=== PATIENT | female | born 1990 | race Caucasian/White ===

== ENCOUNTER 2020-04-09 07:43 | Emergency (ER) | payer OTHER ==
[~2020-04-09] VITALS: Ht 167.6 cm; Wt 107.5 kg
--- OUTSIDE RECORDS SUMMARY | 2020-04-09 07:46 | XMS ---
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 Hank has no Care Guidelines for this patient. Maryam VISIT COUNT (12 MO.) 1 ELLIOT Perez TOTAL 1 NOTE: Visits indicate total known visits. ED/UCC VISIT TRACKING (12 MO.) 04/09/2020 07:43 [facility] [place] TYPE: Emergency COMPLAINT: - RECTAL PAIN INPATIENT VISIT TRACKING (12 MO.) No inpatient visits to display in this time frame [id number]
[2020-04-09] MEDS ORDERED: SUBOXONE 4 MG-1 EACH SL (07:54)
[2020-04-09] MEDS ORDERED: HYDROXYZINE PAM50 MG PO (07:55)
[2020-04-09] MEDS ORDERED: DULCOLAX5 MG PO (07:55)
[2020-04-09] MEDS ORDERED: ANUSOL-HC30 GM PR (08:26)
== END 2020-04-09 08:30 | disposition home or self-care (01) ==
LOC: ED 07:43
DX: K64.4 Residual hemorrhoidal skin tags (principal); Z79.899 Other long term (current) drug therapy
CPT/HCPCS: 99283

== ENCOUNTER 2020-08-04 08:24 | Emergency (ER) | payer OTHER ==
[~2020-08-04] VITALS: Ht 167.6 cm; Wt 100.7 kg
[~2020-08-04 08:24] MED LIST: ANUSOL-HC30 GM PR; DULCOLAX5 MG PO; HYDROXYZINE PAM50 MG PO; SUBOXONE 4 MG-1 EACH SL
--- OUTSIDE RECORDS SUMMARY | 2020-08-04 09:34 | XMS ---
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 Maryam VISIT COUNT (12 MO.) 2 ELLIOT Perez TOTAL 2 NOTE: Visits indicate total known visits. ED/UCC VISIT TRACKING (12 MO.) 08/04/2020 08:24 [facility] [place] TYPE: Emergency COMPLAINT: - LEFT ANKLE INJURY 04/09/2020 07:43 [facility] [place] TYPE: Emergency COMPLAINT: - RECTAL PAIN DIAGNOSES: - Other specified diseases of anus and rectum - Other care home (current) drug therapy - Residual hemorrhoidal skin tags INPATIENT VISIT TRACKING (12 MO.) No inpatient visits to display in this time frame [email or web address]
[2020-08-04] MEDS ORDERED: OMEPRAZOLE20 MG PO (09:58)
[2020-08-04] MEDS ORDERED: FLUOXETINE HCL40 MG PO (09:58)
[2020-08-04] MEDS ORDERED: CRUTCH1 EACH MISC (10:30)
== END 2020-08-04 11:14 | disposition home or self-care (01) ==
LOC: ED 08:24
DX: S82.52XA Displaced fracture of medial malleolus of left tibia, initial encounter for closed fracture (principal); S82.832A Other fracture of upper and lower end of left fibula, initial encounter for closed fracture; X50.9XXA Other and unspecified overexertion or strenuous movements or postures, initial encounter; Z79.899 Other long term (current) drug therapy
CPT/HCPCS: 73610; 96374; 96375; 96376; 99283-25; J1170; J1885

== ENCOUNTER 2020-08-10 06:10 | Day surgery (SDC) | payer OTHER ==
[~2020-08-10] VITALS: Ht 167.6 cm; Wt 100.0 kg
[~2020-08-10 06:10] MED LIST changes: +CRUTCH1 EACH MISC; +FLUOXETINE HCL40 MG PO; +OMEPRAZOLE20 MG PO
--- NOTE | 2020-08-10 06:27 | NUR ---
[facility] RAPID COVID TEST DONE PER ORDER. COVID TEST COLLECTED FROM BOTH NARES W/O ISSUE. PT TOLERATED WELL.
[2020-08-10] MEDS ORDERED: CLONIDINE HCL0.1 MG PO (11:02)
[2020-08-10] MEDS ORDERED: GABAPENTIN300 MG PO (11:02)
--- NOTE | 2020-08-10 12:41 | NUR ---
08/10/20 1241 Ellen Maya 1228- PT TO PACU IN SF POSITION. EYES CLOSED. RESPONDS TO VERBAL AND TACTILE STIMULI. BREATHING EASY AND UNALBORED. PT DENIES PAIN BUT REPORTS NAUSEA. SPO2 >95% ON 6 L O2 VIA SIMPLE MASK. BUSINESS PROFESSOR NOTIFIED OF NAUSEA. 1335- PT RESPONDS TO VOICE. BREATHING EASY AND UNLABORED. SPO2 >95% ON 6 L O2 VIA SIMPLE MASK. VSS. CAP REFIL BRISK TO RLE, PULSES STRONG. VSS.
[2020-08-10] MEDS ORDERED: KETOROLAC TROME10 MG PO (12:42)
[2020-08-10] MEDS ORDERED: TRAMADOL HCL50 MG PO (12:43)
--- NOTE | 2020-08-10 13:10 | NUR ---
ICED WATER GIVEN. CALL LIGHT IS WITHIN REACH. PATIENT'S FRIEND IS BRINGING CRUTCHES. PATIENT STANDS AND PIVOT TRANSFERS TO THE BEDSIDE COMMODE. SHE DOES WELL WITH THAT. SHE VOIDS 200 ML CLEAR, YELLOW URINE AND IS BACK IN BED. SCD ON NON-OPERATIVE LEG. SANDWICH ORDERED FROM DIETARY.
--- NOTE | 2020-08-10 13:30 | NUR ---
SANDWICH ARRIVES. PATIENT IS SITTING UP IN BED, EATING AND SHE IS TOLERATING THAT WELL.
--- NOTE | 2020-08-10 13:48 | NUR ---
PATIENT PUSHES HER CALL LIGHT AND REQUESTS "SOMETHING STRONGER" FOR PAIN. DR HOGAN IS NOTIFIED AND HE REPORTS HE WILL SEND AN RX TO [facility].
[2020-08-10] MEDS ORDERED: HYDROCODON-ACE1 EA11 PO (13:56)
--- NOTE | 2020-08-10 14:14 | NUR ---
DISCHARGE INSTRUCTIONS GIVEN. PATIENT IS ASSISTED DRESSED AFTER TRANSFERRING TO THE COMMODE. SHE DOES WELL WITH THAT. PATIENT IS EXPRESSING FRUSTRATION WITH "PAIN CONTROL" AND EDUCATION IS COMPLETE WITH REGARD TO THAT. PATIENT VERBALIZES UNDERSTANDING.
--- NOTE | 2020-08-10 14:58 | NUR ---
LE 1430: PATIENT TRANSFERS HERSELF TO THE WHEELCHAIR AND THEN TO PERSONAL VEHICLE AND SHE IS DISCHARGED HOME.
--- NOTE | 2020-08-12 09:54 | OR ---
[facility] [address], [place] [address] Signed DATE OF OPERATION: 08/10/2020 SURGEON: Israel Bolanos MD PREOPERATIVE DIAGNOSIS: Left bimalleolar fracture dislocation of the ankle. POSTOPERATIVE DIAGNOSIS: Left bimalleolar fracture dislocation of the ankle. PROCEDURE PERFORMED: Open reduction and internal fixation of left bimalleolar ankle fracture with syndesmosis fixation. RETAIL COMMISSION SALES ASSOCIATE: None. ANESTHESIA: General. BLOOD LOSS: Minimal. TOURNIQUET TIME: 67 minutes. IMPLANTS: A 10-hole 1/3rd tubular plate with 11 screws laterally, screw and wire medially. BRIEF HISTORY: Rachel is a 29-year-old female suffered a ground level fall fracturing and dislocating her ankle. She had a segmental fracture in the proximal aspect of the distal fibula about 6 cm above the joint. She was reduced in the Emergency Department, placed in a boot. We allowed the swelling to go down and scheduled her for surgery. Risks and benefits of surgery were discussed with her as well as alternatives. She elected to proceed. DESCRIPTION OF PROCEDURE: Once consent was obtained, she was taken to the operating room. After adequate anesthesia, she was placed on the operating room table. All downside pressure points Electronically Signed By: ISRAEL BOLANOS MD 08/12/20 0954 PATIENT NAME: RACHEL EMERY OPERATIVE REPORT DATE OF : [birth year] REPORT #: [id number] PHYSICIAN: ISRAEL BOLANOS MD PCP: KHURRAM PIKE PA-C REPORT IS CONFIDENTIAL AND NOT TO BE RELEASED WITHOUT AUTHORIZATION [facility] [address], [place] [address] Signed were well padded. The left hip was placed on a bump and a well-padded proximal thigh tourniquet was placed. The leg was then prepped and draped in a standard sterile fashion. The segmental fibular fracture was then isolated using the image intensifier and a 3-inch incision was made in length inches, taken through skin and subcutaneous tissue, the fascia was divided longitudinally and blunt dissection was taken down to the fibula to avoid any damage to the superficial peroneal nerve. The fracture was then dissected free of overlying soft tissue. The 3 cm segment in the middle was also split sagittally. This was reduced, clamped and held with a 2.7 screw in anterior-posterior manner. The three fragments were then all reduced and held using the long plate. We placed one screw distal, one screw proximal and checked using image intensifier. The fracture and alignment were all good. The remaining screws were placed, several 2.7 screws were placed from the plate into the middle fragment. Excellent fixation was obtained throughout. The wound was copiously irrigated with antibiotic solution, closed with 2-0 Monocryl for the deep fascia. I then turned our attention to the medial side where a 1.5 inch incision was centered over the medial malleolus, carried through skin and subcutaneous tissue. The fracture was identified and under direct visualization was reduced and held with a clamp. We then pinned it with a 1.6 K-wire. This was checked using image intensifier and found to be satisfactory. We drilled a 2nd hole just posterior to the K-wire and placed a 40 mm screw, which held the fragment quite nicely. We then cut and bent the wire . Once this was completed, both wounds were copiously irrigated with antibiotic solution once again. At the distal end of the lateral incision, we then drilled straight across the fibula and the tibia with the drill for the Arthrex syndesmosis fixation. The drill was taken all across again under direct image intensifier guidance. The device was then placed through the hole and deployed on the medial side and flipped until medial tibia. We then tightened it up with an ankle in neutral dorsiflexion. We got excellent fixation with this and the suture ends were cut. We then irrigated both wounds, closed with 2-0 Monocryl and maria del carmen. Both wounds were then dressed with Acticoat dressing, sterile cast padding and a posterior splint with stirrups. She was awakened, taken to the recovery room in satisfactory condition. All sponge, needle, and instrument counts were correct. Israel Bolanos MD BA/MODL /[id number] Electronically Signed By: ISRAEL BOLANOS MD 08/12/20 0954 PATIENT NAME: RACHEL EMERY OPERATIVE REPORT DATE OF : [birth year] REPORT #: [id number] PHYSICIAN: ISRAEL BOLANOS MD PCP: KHURRAM PIKE PA-C REPORT IS CONFIDENTIAL AND NOT TO BE RELEASED WITHOUT AUTHORIZATION [address] [address] Signed Copies: ~ Electronically Signed By: ISRAEL BOLANOS MD 08/12/20 0954 PATIENT NAME: RACHEL EMERY OPERATIVE REPORT DATE OF : [birth year] REPORT #: [id number] PHYSICIAN: ISRAEL BOLANOS MD PCP: KHURRAM PIKE PA-C REPORT IS CONFIDENTIAL AND NOT TO BE RELEASED WITHOUT AUTHORIZATION
== END 2020-08-10 14:30 | disposition home or self-care (01) ==
LOC: DS 06:10
PROVIDERS: ATTEND Specialist
PROC: 0QSK04Z Reposition Left Fibula with Internal Fixation Device, Open Approach (ICD-10-PCS; principal; 2020-08-10 12:00)
DX: S82.842A Displaced bimalleolar fracture of left lower leg, initial encounter for closed fracture (principal); S82.452A Displaced comminuted fracture of shaft of left fibula, initial encounter for closed fracture; G89.18 Other acute postprocedural pain; F19.21 Other psychoactive substance dependence, in remission; Z20.822 Contact with and (suspected) exposure to COVID-19; W01.0XXA Fall on same level from slipping, tripping and stumbling without subsequent striking against object, initial encounter; X50.1XXA Overexertion from prolonged static or awkward postures, initial encounter; Y92.830 Public park as the place of occurrence of the external cause
CPT/HCPCS: 01480; 64445; 64447; 73600; 76942; 80053; 84703; 85025; C1713; C9803; J0131; J0690; J1100; J1885; J2001; J2250; J2405; J2550; J2704; J2795; J7121; U0003

== ENCOUNTER 2022-04-08 16:47 | Emergency (ER) | payer OTHER ==
[~2022-04-08] VITALS: Ht 167.6 cm; Wt 74.8 kg
[~2022-04-08 16:47] MED LIST changes: +CLONIDINE HCL0.1 MG PO; +GABAPENTIN300 MG PO; +HYDROCODON-ACE1 EA11 PO; +KETOROLAC TROME10 MG PO; +TRAMADOL HCL50 MG PO
== END 2022-04-08 17:15 | disposition home or self-care (01) ==
LOC: ED 16:47
DX: S61.304A Unspecified open wound of right ring finger with damage to nail, initial encounter (principal); X58.XXXA Exposure to other specified factors, initial encounter; F17.200 Nicotine dependence, unspecified, uncomplicated; Z79.899 Other long term (current) drug therapy
CPT/HCPCS: 99282

== ENCOUNTER 2022-05-16 18:01 | Emergency (ER) | payer OTHER ==
[~2022-05-16] VITALS: Ht 167.6 cm; Wt 67.6 kg
--- OUTSIDE RECORDS SUMMARY | 2022-05-16 18:09 | XMS ---
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 - Patient with suicidal and/or homicidal ideations eloped. - Patient eloped with IV in place. Details: PATIENT LWBS CRITERIA MET - [facility] - 2 Visits in 30 Days CARE PROVIDERS [facility] Current PHONE: Unknown ESAU MINAYA Nurse Practitioner: 04/11/2020-Current PHONE: [phone] Claritza Rodriguez Nurse Practitioner: Current PHONE: [phone] Hank has no Care Guidelines for this patient. Maryam VISIT COUNT (12 MO.) 3 ELLIOT Perez TOTAL 3 NOTE: Visits indicate total known visits. 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
[2022-05-16] MEDS ORDERED: ONDANSETRON ODT8 MG PO (20:23)
== END 2022-05-16 20:43 | disposition home or self-care (01) ==
LOC: ED 18:01
DX: K52.9 Noninfective gastroenteritis and colitis, unspecified (principal); F17.200 Nicotine dependence, unspecified, uncomplicated; Z79.899 Other long term (current) drug therapy
CPT/HCPCS: 36415; 74177; 80053; 81001; 83690; 84703; 85025; A9270; J2270; J2405; J7030; Q9967

== ENCOUNTER 2023-03-21 15:50 | Emergency (ER) | payer OTHER ==
[~2023-03-21] VITALS: Ht 167.6 cm; Wt 56.7 kg
--- OUTSIDE RECORDS SUMMARY | ~2023-03-21 | XMS | Continuity of Care Document ---
Demographics + + + | Address | [address] | | | [place] [address] | + + + | Preferred Language | Unknown | + + + | Marital Status | Never | + + + | Mu-Ism Affiliation | Unknown | + + + | Race | White | + + + | Ethnic Group | Not or | + + + Author + + + | Author | [facility] | + + + | Organization | [facility] | + + + | Address | [address] | | | [place] [address] | + + + | Phone | | + + + Care Team Providers + + + + | Care Shelter Director Name | Role | Phone | + + + + Unavailable | Unavailable | + + + + Unavailable | Unavailable | + + + + Unavailable | Unavailable | + + + + Allergies and Intolerances + + + + + + | date | description | facility | reaction | severity | + + + + + + | (no date) | No Known | [facility] | (no reaction) | (no severity) | | | Allergies | | | | + + + + + + Encounters No information. Functional Status No information. Immunizations No information. Medications + + + + | date | description | facility | + + + + | 2022-04-08 00:00 | BUPRENORPHINE HCL/NALOXONE | [facility] | | | HCL | | + + + + | 2022-05-14 00:00 | BUPRENORPHINE HCL/NALOXONE | [facility] | | | HCL | | + + + + | 2022-05-16 00:00 | BUPRENORPHINE HCL/NALOXONE | [facility] | | | HCL | | + + + + | 2020-04-09 00:00 | HYDROCORTISONE | [facility] | + + + + | 2020-04-09 00:00 | HYDROCORTISONE | [facility] | + + + + | 2022-04-08 00:00 | OMEPRAZOLE | [facility] | + + + + | 2022-05-14 00:00 | OMEPRAZOLE | [facility] | + + + + | 2022-05-16 00:00 | OMEPRAZOLE | [facility] | + + + + | 2022-04-08 00:00 | BISACODYL | [facility] | + + + + | 2022-05-14 00:00 | BISACODYL | [facility] | + + + + | 2022-05-16 00:00 | BISACODYL | [facility] | + + + + | 2022-04-08 00:00 | GABAPENTIN | [facility] | + + + + | 2022-05-14 00:00 | GABAPENTIN | [facility] | + + + + | 2022-05-16 00:00 | GABAPENTIN | [facility] | + + + + | 2022-05-16 00:00 | ONDANSETRON | [facility] | + + + + | 2022-04-08 00:00 | FLUOXETINE HCL | [facility] | + + + + | 2022-05-14 00:00 | FLUOXETINE HCL | [facility] | + + + + | 2022-05-16 00:00 | FLUOXETINE HCL | [facility] | + + + + | 2020-08-10 00:00 | KETOROLAC TROMETHAMINE | [facility] | + + + + | 2020-08-10 00:00 | KETOROLAC TROMETHAMINE | [facility] | + + + + | 2022-04-08 00:00 | CLONIDINE HCL | [facility] | + + + + | 2022-05-14 00:00 | CLONIDINE HCL | [facility] | + + + + | 2022-05-16 00:00 | CLONIDINE HCL | [facility] | + + + + | 2022-04-08 00:00 | HYDROXYZINE PAMOATE | [facility] | + + + + | 2022-05-14 00:00 | HYDROXYZINE PAMOATE | [facility] | + + + + | 2022-05-16 00:00 | HYDROXYZINE PAMOATE | [facility] | + + + + Problems + + + + | date | description | facility | + + + + | 2020-04-09 00:00 | External hemorrhoids | [facility] | + + + + | 2020-04-09 00:00 | External hemorrhoids | [facility] | + + + + | 2022-05-14 00:00 | Patient left without being | [facility] | | | seen | | + + + + | 2022-05-16 00:00 | Gastroenteritis | [facility] | + + + + | 2023-01-10 08:20 | EPIGASTRIC PAIN | [facility] | + + + + | 2023-01-21 08:00 | EPIGASTRIC PAIN | [facility] | + + + + | 2023-02-04 09:00 | EPIGASTRIC PAIN | [facility] | + + + + Procedures No information. Results/Labs +--------+--------+ +---------+--------+---------+ | test | date | facility | value | unit | notes | +--------+--------+ +---------+--------+---------+ + + | Result panel 1 | + + + + + +--------+ + + | | 2022-05-16 | [facility] | 11.1 | (missing) | (missing) | | (unavailable | 18:26 [facility] | | | | + + + +--------+ + + + + | Result panel 2 | + + + + + +--------+ + + | | 2022-05-16 | [facility] | 67.6 | (missing) | (missing) | | (unavailable | 18:26 | [facility] | | | | + + + +--------+ + + + + | Result panel 3 | + + + + + +--------+ + + | | 2022-05-16 | [facility] | 23.6 | (missing) | (missing) | | (unavailable | 18:26 | [facility] | | | | + + + +--------+ + + + + | Result panel 4 | + + + + + +-------+ + + | | 2022-05-16 | [facility] | 6.8 | (missing) | (missing) | | (unavailable | 18:26 | [facility] | | | | + + + +-------+ + + + + | Result panel 5 | + + + + + +-------+ + + | | 2022-05-16 | [facility] | 1.4 | (missing) | (missing) | | (unavailable | 18:26 | [facility] | | | | + + + +-------+ + + + + | Result panel 6 | + + + + + +-------+ + + | | 2022-05-16 | [facility] | 0.6 | (missing) | (missing) | | (unavailable | 18:26 [facility] | | | | + + + +-------+ + + + + | Result panel 7 | + + + + + +--------+ + + | | 2022-05-16 | [facility] | 5.14 | (missing) | (missing) | | (unavailable | 18:26 [facility] | | | | + + + +--------+ + + + + | Result panel 8 | + + + + + +------+---------+ + | | 2022-05-16 | [facility] | 85 | mg/dL | (missing) | | (unavailable | 18:26 | [facility] | | | | + + + +------+---------+ + + + | Result panel 9 | + + + + + +------+---------+ + | | 2022-05-16 | [facility] | 15 | mg/dL | (missing) | | (unavailable | 18:26 | [facility] | | | | + + + +------+---------+ + + + | Result panel 10 | + + + + + +--------+---------+ + | | 2022-05-16 | [facility] | 0.97 | mg/dL | (missing) | | (unavailable | 18:26 | [facility] | | | | + + + +--------+---------+ + + + | Result panel 11 | + + + + + +--------+ + + | | 2022-05-16 | [facility] | 15.0 | (missing) | (missing) | | (unavailable | 18:26 [facility] | | | | + + + +--------+ + + + + | Result panel 12 | + + + + + +------+ + + | | 2022-05-16 | [facility] | 80 | (missing) | (missing) | | (unavailable | 18:26 [facility] | | | | + + + +------+ + + + + | Result panel 13 | + + + + + +---------+ + + | | 2022-05-16 | [facility] | 15.46 | (missing) | (missing) | | (unavailable | 18:26 [facility] | | | | + + + +---------+ + + + + | Result panel 14 | + + + + + +-------+ + + | | 2022-05-16 | [facility] | 137 | (missing) | (missing) | | (unavailable | 18:26 | [facility] | | | | + + + +-------+ + + + + | Result panel 15 | + + + + + +-------+ + + | | 2022-05-16 | [facility] | 3.9 | (missing) | (missing) | | (unavailable | 18:26 | [facility] | | | | + + + +-------+ + + + + | Result panel 16 | + + + + + +-------+ + + | | 2022-05-16 | [facility] | 101 | (missing) | (missing) | | (unavailable | 18:26 [facility] | | | | + + + +-------+ + + + + | Result panel 17 | + + + + + +------+ + + | | 2022-05-16 | [facility] | 28 | (missing) | (missing) | | (unavailable | 18:26 [facility] | | | | + + + +------+ + + + + | Result panel 18 | + + + + + +--------+ + + | | 2022-05-16 | [facility] | 11.9 | (missing) | (missing) | | (unavailable | 18:26 [facility] | | | | + + + +--------+ + + + + | Result panel 19 | + + + + + +-------+---------+ + | | 2022-05-16 | [facility] | 9.3 | mg/dL | (missing) | | (unavailable | 18:26 [facility] | | | | + + + +-------+---------+ + + + | Result panel 20 | + + + + + +-------+ + + | | 2022-05-16 | [facility] | 6.9 | (missing) | (missing) | | (unavailable | 18:26 [facility] | | | | + + + +-------+ + + + + | Result panel 21 | + + + + + +-------+ + + | | 2022-05-16 | [facility] | 3.8 | (missing) | (missing) | | (unavailable | 18:26 [facility] | | | | + + + +-------+ + + + + | Result panel 22 | + + + + + +--------+ + + | | 2022-05-16 | [facility] | 44.9 | (missing) | (missing) | | (unavailable | 18:26 [facility] | | | | + + + +--------+ + + + + | Result panel 23 | + + + + + +-------+ + + | | 2022-05-16 | [facility] | 3.1 | (missing) | (missing) | | (unavailable | 18:26 [facility] | | | | + + + +-------+ + + + + | Result panel 24 | + + + + + +--------+ + + | | 2022-05-16 | [facility] | 1.23 | (missing) | (missing) | | (unavailable | 18:26 [facility] | | | | + + + +--------+ + + + + | Result panel 25 | + + + + + +-------+ + + | | 2022-05-16 | [facility] | 0.8 | (missing) | (missing) | | (unavailable | 18:26 [facility] | | | | + + + +-------+ + + + + | Result panel 26 | + + + + + +------+ + + | | 2022-05-16 | [facility] | 12 | (missing) | (missing) | | (unavailable | 18:26 [facility] | | | | + + + +------+ + + + + | Result panel 27 | + + + + + +------+ + + | | 2022-05-16 | [facility] | 21 | (missing) | (missing) | | (unavailable | 18:26 [facility] | | | | + + + +------+ + + + + | Result panel 28 | + + + + + +------+ + + | | 2022-05-16 | [facility] | 67 | (missing) | (missing) | | (unavailable | 18:26 [facility] | | | | + + + +------+ + + + + | Result panel 29 | + + + + + +-------+ + + | | 2022-05-16 | [facility] | 112 | (missing) | (missing) | | (unavailable | 18:26 [facility] | | | | + + + +-------+ + + + + | Result panel 30 | + + + + + + + + + | | 2022-05-16 | [facility] | NEGATIVE | (missing) | (missing) | | (unavailable | 18:26 [facility] | | | | + + + + + + + + + | Result panel 31 | + + + + + +--------+ + + | | 2022-05-16 | [facility] | 87.3 | (missing) | (missing) | | (unavailable | 18:26 | [facility] | | | | + + + +--------+ + + + + | Result panel 32 | + + + + + +--------+ + + | | 2022-05-16 | [facility] | 29.2 | (missing) | (missing) | | (unavailable | 18:26 [facility] | | | | + + + +--------+ + + + + | Result panel 33 | + + + + + +--------+ + + | | 2022-05-16 | [facility] | 33.4 | (missing) | (missing) | | (unavailable | 18:26 [facility] | | | | + + + +--------+ + + + + | Result panel 34 | + + + + + +--------+ + + | | 2022-05-16 | [facility] | 12.9 | (missing) | (missing) | | (unavailable | 18:26 [facility] | | | | + + + +--------+ + + + + | Result panel 35 | + + + + + +-------+ + + | | 2022-05-16 | [facility] | 339 | (missing) | (missing) | | (unavailable | 18:26 | [facility] | | | | + + + +-------+ + + + + | Result panel 36 | + + + + + + + + + | | 2022-05-16 | [facility] | YELLOW | (missing) | (missing) | | (unavailable | 19:55 | [facility] | | | | + + + + + + + + + | Result panel 37 | + + + + + +---------+ + + | | 2022-05-16 | [facility] | CLEAR | (missing) | (missing) | | (unavailable | 19:55 | [facility] | | | | + + + +---------+ + + + + | Result panel 38 | + + + + + + + + + | | 2022-05-16 | [facility] | NEGATIVE | (missing) | (missing) | | (unavailable | 19:55 | [facility] | | | | + + + + + + + + + | Result panel 39 | + + + + + + + + + | | 2022-05-16 | [facility] | POSITIVE | (missing) | (missing) | | (unavailable | 19:55 | [facility] | | | | + + + + + + + + + | Result panel 40 | + + + + + +---------+ + + | | 2022-05-16 | [facility] | SMALL | (missing) | (missing) | | (unavailable | 19:55 | [facility] | | | | + + + +---------+ + + + + | Result panel 41 | + + + + + +---------+ + + | | 2022-05-16 | [facility] | 1.020 | (missing) | (missing) | | (unavailable | 19:55 | [facility] | | | | + + + +---------+ + + + + | Result panel 42 | + + + + + + + + + | | 2022-05-16 | [facility] | NEGATIVE | (missing) | (missing) | | (unavailable | 19:55 | [facility] | | | | + + + + + + + + + | Result panel 43 | + + + + + +-------+ + + | | 2022-05-16 | [facility] | 6.5 | (missing) | (missing) | | (unavailable | 19:55 | [facility] | | | | + + + +-------+ + + + + | Result panel 44 | + + + + + + + + + | | 2022-05-16 | [facility] | NEGATIVE | (missing) | (missing) | | (unavailable | 19:55 | [facility] | | | | + + + + + + + + + | Result panel 45 | + + + + + +-------+ + + | | 2022-05-16 | [facility] | 1.0 | (missing) | (missing) | | (unavailable | 19:55 | [facility] | | | | + + + +-------+ + + + + | Result panel 46 | + + + + + + + + + | | 2022-05-16 | [facility] | NEGATIVE | (missing) | (missing) | | (unavailable | 19:55 | [facility] | | | | + + + + + + + + + | Result panel 47 | + + + + + + + + + | | 2022-05-16 | [facility] | NEGATIVE | (missing) | (missing) | | (unavailable | 19:55 | [facility] | | | | + + + + + + + Social History No information. Vital Signs + + + +---------+ | date | measurement | value | units | + + + +---------+ | 2022-04-08 00:00 | BMI | 26.6 | kg/m2 | + + + +---------+ | 2022-04-08 00:00 | BP_diastolic | 83 | mmHg | + + + +---------+ | 2022-04-08 00:00 | BP_systolic | 121 | mmHg | + + + +---------+ | 2022-04-08 00:00 | heart_rate | 80 | /min | + + + +---------+ | 2022-04-08 00:00 | height_metric | 167.64 | cm | + + + +---------+ | 2022-04-08 00:00 | height_standard | 66 | in | + + + +---------+ | 2022-04-08 00:00 | o2_saturation | 98 | % | + + + +---------+ | 2022-04-08 00:00 | respiration_rate | 16 | /min | + + + +---------+ | 2022-04-08 00:00 | temperature_metric | 36.83 | C | | | | | | + + + +---------+ | 2022-04-08 00:00 | | 98.3 | F | | | temperature_standar | | | | | d | | | + + + +---------+ | 2022-04-08 00:00 | weight_metric | 74.84 | kg | + + + +---------+ | 2022-04-08 00:00 | weight_standard | 164.99 | lb | + + + +---------+ | 2022-04-08 00:00 | weight_standard | 165 | lb | + + + +---------+ | 2022-05-14 00:00 | BMI | 24.2 | kg/m2 | + + + +---------+ | 2022-05-14 00:00 | BP_diastolic | 77 | mmHg | + + + +---------+ | 2022-05-14 00:00 | BP_systolic | 117 | mmHg | + + + +---------+ | 2022-05-14 00:00 | heart_rate | 85 | /min | + + + +---------+ | 2022-05-14 00:00 | height_metric | 167.64 | cm | + + + +---------+ | 2022-05-14 00:00 | height_standard | 66 | in | + + + +---------+ | 2022-05-14 00:00 | o2_saturation | 97 | % | + + + +---------+ | 2022-05-14 00:00 | respiration_rate | 16 | /min | + + + +---------+ | 2022-05-14 00:00 | temperature_metric | 36.78 | C | | | | | | + + + +---------+ | 2022-05-14 00:00 | | 98.2 | F | | | temperature_standar | | | | | d | | | + + + +---------+ | 2022-05-14 00:00 | weight_metric | 68 | kg | + + + +---------+ | 2022-05-14 00:00 | weight_standard | 149.91 | lb | + + + +---------+ | 2022-05-16 00:00 | BMI | 24.1 | kg/m2 | + + + +---------+ | 2022-05-16 00:00 | BP_diastolic | 78 | mmHg | + + + +---------+ | 2022-05-16 00:00 | BP_systolic | 112 | mmHg | + + + +---------+ | 2022-05-16 00:00 | heart_rate | 68 | /min | + + + +---------+ | 2022-05-16 00:00 | height_metric | 167.64 | cm | + + + +---------+ | 2022-05-16 00:00 | height_standard | 66 | in | + + + +---------+ | 2022-05-16 00:00 | o2_saturation | 100 | % | + + + +---------+ | 2022-05-16 00:00 | respiration_rate | 14 | /min | + + + +---------+ | 2022-05-16 00:00 | temperature_metric | 36.56 | C | | | | | | + + + +---------+ | 2022-05-16 00:00 | | 97.8 | F | | | temperature_standar | | | | | d | | | + + + +---------+ | 2022-05-16 00:00 | weight_metric | 67.59 | kg | + + + +---------+ | 2022-05-16 00:00 | weight_standard | 149 | lb | + + + +---------+ | 2022-05-16 00:00 | weight_standard | 149.01 | lb | + + + +---------+"
--- OUTSIDE RECORDS SUMMARY | ~2023-03-21 | XMS | Continuity of Care Document ---
Demographics + + + | Address | [address] | | | [place] [address] | + + + | Preferred Language | Unknown | + + + | Marital Status | Never | + + + | Moravian Affiliation | Unknown | + + + | Race | White | + + + | Ethnic Group | Not or | + + + Author + + + | Author | [facility] | + + + | Organization | [facility] | + + + | Address | [address] | | | [place] [address] | + + + | Phone | | + + + Care Team Providers + + + + | Care Solid Fiber Paster Operator Name | Role | Phone | + [...] | 2022-04-08 00:00 | BUPRENORPHINE HCL/NALOXONE | [facility] | | | HCL | | + + + + | 2022-05-14 00:00 | BUPRENORPHINE HCL/NALOXONE | [facility] | | | HCL | | + + + + | 2022-05-16 00:00 | BUPRENORPHINE HCL/NALOXONE | [facility] | | | HCL | | + + + + | 2020-04-09 00:00 | HYDROCORTISONE | [facility] | + + + + | 2020-04-09 00:00 | HYDROCORTISONE | [facility] | + + + + | 2022-04-08 00:00 | OMEPRAZOLE | [facility] | + + + + | 2022-05-14 00:00 | OMEPRAZOLE | [facility] | + + + + | 2022-05-16 00:00 | OMEPRAZOLE | [facility] | + + + + | 2022-04-08 00:00 | BISACODYL | [facility] | + + + + | 2022-05-14 00:00 | BISACODYL | [facility] | + + + + | 2022-05-16 00:00 | BISACODYL | [facility] | + + + + | 2022-04-08 00:00 | GABAPENTIN | [facility] | + + + + | 2022-05-14 00:00 | GABAPENTIN | [facility] | + + + + | 2022-05-16 00:00 | GABAPENTIN | [facility] | + + + + | 2022-05-16 00:00 | ONDANSETRON | [facility] | + + + + | 2022-04-08 00:00 | FLUOXETINE HCL | [facility] | + + + + | 2022-05-14 00:00 | FLUOXETINE HCL | [facility] | + + + + | 2022-05-16 00:00 | FLUOXETINE HCL | [facility] | + + + + | 2020-08-10 00:00 | KETOROLAC TROMETHAMINE | [facility] | + + + + | 2020-08-10 00:00 | KETOROLAC TROMETHAMINE | [facility] | + + + + | 2022-04-08 00:00 | CLONIDINE HCL | [facility] | + + + + | 2022-05-14 00:00 | CLONIDINE HCL | [facility] | + + + + | 2022-05-16 00:00 | CLONIDINE HCL | [facility] | + + + + | 2022-04-08 00:00 | HYDROXYZINE PAMOATE | [facility] | + + + + | 2022-05-14 00:00 | HYDROXYZINE PAMOATE | [facility] | + + + + | 2022-05-16 00:00 | HYDROXYZINE PAMOATE | [facility] | + + + + Problems + + + + | date | description | facility | + + + + | 2020-04-09 00:00 | External hemorrhoids | [facility] | + + + + | 2020-04-09 00:00 | External hemorrhoids | [facility] | + + + + | 2022-05-14 00:00 | Patient left without being | [facility] | | | seen | | + + + + | 2022-05-16 00:00 | Gastroenteritis | [facility] | + + + + | [...]
[~2023-03-21 15:50] MED LIST changes: +ONDANSETRON ODT8 MG PO
[2023-03-21] MEDS ORDERED: OMEPRAZOLE40 MG PO (16:02)
[2023-03-21] MEDS ORDERED: METHADONE HCL40 MG PO (16:03)
[2023-03-21] MEDS ORDERED: PROTONIX40 MG PO (16:30)
[2023-03-21 16:43] LABS: BASOPHILS 0.8 % (0-2); EOSINOPHILS 11.4 % (0-6); HEMATOCRIT 35.2 % (35.0-50.0); LYMPHOCYTES 32.4 % (24-44); MCH 29.3 (27-36); MCV 86.4 fl (81-99); MONOCYTES 6.8 % (0-12); NEUTROPHILS 48.6 % (39-80); PLATELET COUNT 275 K/uL (140-440); RBC 4.07 M/ul (4.3-5.7); RDW 12.4 (10.5-15.0)
[2023-03-21 16:57] LABS: ALBUMIN 3.8 g/dL (3.4-5.0); ALBUMIN/GLOBULIN RATIO 1.46 (1.1-2.4); ANION GAP 11.8 (7-21); BILIRUBIN, TOTAL 0.5 ng/dL (0.2-1.0); BUN/CREATININE RATIO 12.38 (6.0-28.6); CREATININE, SERUM 1.05 mg/dL (0.55-1.02); POTASSIUM 3.8 mmol/L (3.5-5.1); PROTEIN, TOTAL 6.4 g/dL (6.4-8.2)
[2023-03-21 17:08] VITALS: BP 111/82
== END 2023-03-21 17:10 | disposition home or self-care (01) ==
LOC: ED 15:50
PROVIDERS: Emergency Medicine
DX: K29.70 Gastritis, unspecified, without bleeding (principal); F17.200 Nicotine dependence, unspecified, uncomplicated
CPT/HCPCS: 36415; 80053; 84703; 85025; 99284

== ENCOUNTER 2023-06-26 07:43 | Emergency (ER) | payer OTHER ==
[~2023-06-26] VITALS: Ht 167.6 cm; Wt 57.6 kg
[~2023-06-26 07:43] MED LIST changes: +BUSPIRONE HCL7.5 MG PO; +FLEET ENEMA133 ML PR; +KRISTALOSE20 GM PO; +METHADONE HCL40 MG PO; +OMEPRAZOLE40 MG PO; +PROTONIX40 MG PO
[2023-06-26 08:30] LABS: BILIRUBIN, URINE NEGATIVE (negative); BLOOD/HGB, URINE NEGATIVE (Negative); KETONE, URINE SMALL (Negative); LEUK ESTERASE, URINE TRACE (negative); NITRITE, URINE NEGATIVE (negative); PH, URINE 6.5 (5-7)
[2023-06-26 08:32] LABS: BASOPHILS 0.5 % (0-2); EOSINOPHILS 3.7 % (0-6); HEMATOCRIT 37.9 % (35.0-50.0); HEMOGLOBIN 13.1 g/dL (12.0-18.0); LYMPHOCYTES 12.7 % (24-44); MCH 29.2 (27-36); MCHC 34.7 g/dl (30-36); MCV 84.2 fl (81-99); NEUTROPHILS 80.1 % (39-80); PLATELET COUNT 280 K/uL (140-440); RDW 12.6 (10.5-15.0)
[2023-06-26 08:45] LABS: ALBUMIN 3.9 g/dL (3.4-5.0); ALBUMIN/GLOBULIN RATIO 1.39 (1.1-2.4); BILIRUBIN, TOTAL 0.6 ng/dL (0.2-1.0); CALCIUM 8.9 mg/dL (8.5-10.1); CREATININE, SERUM 0.7 mg/dL (0.55-1.02); MAGNESIUM 1.7 mg/dL (1.8-2.4); PROTEIN, TOTAL 6.7 g/dL (6.4-8.2)
[2023-06-26 08:51] LABS: BACTERIA, URINE RARE /hpf (negative); CASTS, URINE NONE SEEN \\lpf; COLLECTION TYPE, URINE CLEAN CATCH; CRYSTALS, URINE NONE SEEN (0-1+); EPITHELIAL CELLS, URINE SQUAMOUS 2+ /lpf (0-1+); RED BLOOD CELLS, URINE 0-1 /hpf (0-5); REFLEX CULTURE, URINE No (No); WHITE BLOOD CELLS, URINE 0-1 /HPF (0-5)
[2023-06-26] MEDS ORDERED: LIDOCAINE HCL100 ML PO (10:54)
[2023-06-26] MEDS ORDERED: OMEPRAZOLE20 MG PO (10:55)
[2023-06-26] MEDS ORDERED: ONDANSETRON ODT4 MG PO (10:59)
[2023-06-26 11:11] VITALS: BP 98/58
== END 2023-06-26 11:10 | disposition home or self-care (01) ==
LOC: ED 07:43
PROVIDERS: Emergency Medicine
DX: K44.9 Diaphragmatic hernia without obstruction or gangrene (principal); K20.90 Esophagitis, unspecified without bleeding; Z98.84 Bariatric surgery status; F17.200 Nicotine dependence, unspecified, uncomplicated; Z79.899 Other long term (current) drug therapy
CPT/HCPCS: 36415; 74160; 80053; 81001; 83735; 84703; 85025; J2405

== ENCOUNTER 2023-08-06 10:46 | Day surgery (SDC) | payer OTHER ==
[2023-07-31 10:14] VITALS: BP 11/64
[~2023-08-06] VITALS: Ht 167.6 cm; Wt 56.4 kg
--- NOTE | ~2023-08-06 | EKG ---
[facility] [address] [facility] [place], [place] [address] Draft EK completed, results pending confirmation PATIENT NAME: EMERY DAVE Electrocardiogram DATE OF : [birth year] PHYSICIAN: PRELIMINARY REPORT #: [id number] REPORT IS CONFIDENTIAL AND NOT TO BE RELEASED WITHOUT AUTHORIZATION
[~2023-08-06 10:46] MED LIST changes: +LIDOCAINE HCL100 ML PO; +ONDANSETRON ODT4 MG PO
[2023-08-06 11:04] VITALS: BP 106/62
--- NOTE | 2023-08-06 11:48 | NUR ---
EKG OBTAINED WITH NO COMPLICATIONS. COPY PLACED IN PT CHART.
--- NOTE | 2023-08-06 13:07 | NUR ---
08/06/[address] IS AT THE BEDSIDE, SPEAKING WITH PATIENT. HER QUESTIONS ARE ANSWERED.
[2023-08-06 13:15] VITALS: BP 102/65
--- NOTE | 2023-08-06 18:49 | OR ---
[facility] [address] [place], [place] [address] Signed DATE OF OPERATION: 08/06/2023 SURGEON: Lidia Bailon MD PREOPERATIVE DIAGNOSES: 1. Clinical gastroesophageal reflux symptoms with mild dysphagia. 2. History of gastric sleeve resection for obesity control (weight loss 130 pounds). 3. 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 4. persistent post prandial nausea and vomiting. POSTOPERATIVE DIAGNOSES: 1. Mild distal esophagitis. No evidence of stricture or neoplasm. 2. Minimal antral gastritis. PROCEDURE: Esophagogastroduodenoscopy with biopsy. ANESTHESIA: Intravenous sedation; propofol infusion, Rob Oswald CRNA. INDICATIONS: This 32-year-old white woman weighs only 127 pounds with a BMI of 21.1. She underwent a gastric sleeve resection going from 256 pounds to 127 pounds. She has complaints of clinical gastroesophageal reflux. She presented to the emergency room in May of 2023 with complaints of upper abdominal pain for which a CT scan of the abdomen with contrast was performed showing small hiatal hernia but no evidence of ulceration or perforation. There was no sign of biliary anomaly. No dilated gallbladder or intrahepatic ductal dilatation. She had no associated pancreatitis. She is admitted at this time to undergo upper endoscopy to better characterize the problem. She understands the risk of bleeding, infection, and perforation. FINDINGS: Mild distal esophagitis was noted. There was no sign of stricture or neoplasm. The tubular stomach was without obvious abnormality other than mild antral gastritis. The duodenum was normal. CLOtest was negative. There is no clear evidence of hiatal hernia on retroflexed view with the esophagoscope though positioning the scope was challenging on the basis of restricted gastric lumen. DESCRIPTION OF PROCEDURE: The patient was brought to the endoscopy suite and placed in lateral decubitus position, given topical lidocaine hypopharyngeal anesthesia. She was given intravenous sedation Electronically Signed By: LIDIA BAILON MD 08/06/23 1849 PATIENT NAME: JOCELINE EMERY OPERATIVE REPORT DATE OF : 89 REPORT #: [id number] PHYSICIAN: LIDIA BAILON MD PCP: ELIJAH VILLALOBOS REPORT IS CONFIDENTIAL AND NOT TO BE RELEASED WITHOUT AUTHORIZATION [facility] [address] [place], [place] [address] Signed with propofol infusional technique by the kiln furniture saw tender. A bite block was placed. An Olympus video upper endoscope was passed in the hypopharynx. The vocal cords were localized and completely normal. The scope was advanced into the esophagus without problem. Throughout the length of the esophagus, it appeared normal, though there may be mild distal esophagitis to a degree but no stricture, neoplasm or varices. The sleeve configuration of the stomach was quite obvious. There was no sign of ulceration or other abnormality. The scope was passed to the antrum and the pylorus was well visualized and the scope passed through into the duodenum. The duodenum was normal. Biopsies were taken of the duodenum. The scope was withdrawn and the pylorus once again visualized. The antrum was biopsied and there did appear to be some mild inflammation. Withdrawal of the scope into the tubular stomach allowed for some amount of retroflexion, but there was no clear evidence of significant hiatal hernia. Scope was straightened and withdrawn. Biopsies were then taken of the distal esophagus and ultimately the mid esophagus. Scope was removed and the patient was taken to the recovery room in good condition. CONCLUDING DIAGNOSES: Clinical gastroesophageal reflux symptoms without profound hiatal hernia and no sign of severe esophagitis. There was no sign of gastric outlet obstruction. PLAN: We will have her double her dose of omeprazole to b.i.d. and we will organize for her to have an upper GI video esophagram to better characterize her motility and so forth. MD CLEMENTE Gomez/NAPOLEONL /[id number] cc: ZAYDA Mars Copies: ~ Electronically Signed By: LIDIA BAILON MD 08/06/23 1849 PATIENT NAME: JOCELINE EMERY OPERATIVE REPORT DATE OF : [birth year] REPORT #: [id number] PHYSICIAN: LIDIA BAILON MD PCP: ELIJAH VILLALOBOS-[place] REPORT IS CONFIDENTIAL AND NOT TO BE RELEASED WITHOUT AUTHORIZATION
--- NOTE | 2023-08-09 16:58 | PATH ---
[facility] [address] [facility] [address] [place] [address] Signed SPECIMEN(S): A DUODENAL BIOPSY SPECIMEN(S): B ANTRUM/PYLORUS BIOPSY SPECIMEN(S): C LOWER ESOPHAGEAL BIOPSY SPECIMEN(S): D MIDDLE ESOPHAGEAL BIOPSY SPECIMEN SOURCE: A. DUODENAL BIOPSY B. ANTRUM/PYLORUS BIOPSY C. LOWER ESOPHAGEAL BIOPSY D. MIDDLE ESOPHAGEAL BIOPSY CLINICAL HISTORY: EGD. History of substernal pain; nausea/vomiting; dysphagia. FINAL PATHOLOGIC DIAGNOSIS: A. Duodenal biopsy: - Benign duodenal mucosa, negative for specific diagnostic abnormality. B. Antrum/pylorus biopsy: - Benign gastric antral-type mucosa with mild chronic gastritis and reactive epithelial features. - Negative for evidence of Helicobacter organisms on immunostain sections. C. Lower esophageal biopsy: - Esophageal mucosa with increased epithelial eosinophils (greater than 30 per high-power field). - Negative for glandular mucosa. - See Comment. D. Middle esophageal biopsy: - Benign esophageal mucosa with increased epithelial eosinophils (greater than 30 per high-power field). - See Comment. COMMENT: The increased epithelial eosinophils are consistent with eosinophilic esophagitis in the appropriate clinical context. Clinical correlation requested. JVR:kavitha MICROSCOPIC EXAMINATION: Histologic sections of all submitted blocks are examined by light microscopy. These findings, together with the gross examination, support the pathologic diagnosis. PATIENT NAME: JOCELINE EMERY PATHOLOGY DATE OF : [birth year] REPORT #: [id number] PHYSICIAN: [facility] PCP: ELIJAH VILLALOBOS REPORT IS CONFIDENTIAL AND NOT TO BE RELEASED WITHOUT AUTHORIZATION [facility] [address] [place], [place] [address] Signed IMMUNOHISTOCHEMICAL RESULTS Deparaffinized tissue sections undergo optimized epitope retrieval prior to incubation with the appropriate antibody. Visualization is provided by an immunoperoxidase technique. Immunohistochemical staining is evaluated by visual examination of slides using a conventional light microscope. The positive control slides for each immunohistochemical test are reviewed and found to exhibit the appropriate staining pattern. Results are as indicated below: Tests performed on formalin fixed, paraffin-embedded block #B1: Helicobacter pylori (SP48*): Negative. *The performance characteristics of these immunohistochemical tests have been determined by [facility]. Some of these tests have been developed by [facility]. [facility] is certified under the Clinical Laboratory Improvement Amendments of 1988 as qualified to perform high complexity clinical laboratory testing. Some of the above tests may use analyte specific reagents; they have not been cleared or approved by the US Food Drug Administration (FDA). The FDA has determined that such clearance or approval is not necessary. These tests are used for clinical purposes. They should not be regarded as investigational or for research. GROSS DESCRIPTION: A. The specimen, labeled and designated "Emery, duodenal biopsy," is received in formalin and consists of two fragments of soft butler tissue that are up to 0.4 cm in greatest dimension. Entirely submitted in (A1). B. The specimen, labeled and designated "Emery, antrum/pylorus biopsy," is received in formalin and consists of two fragments of soft butler tissue that are up to 0.4 cm in greatest dimension. Entirely submitted in (B1). C. The specimen, labeled and designated "Emery, lower esophageal biopsy," is received in formalin and consists of three fragments of soft butler tissue that are up to 0.4 cm in greatest dimension. Entirely submitted in (C1). D. The specimen, labeled and designated "Maday, middle esophageal biopsy," is received in formalin and consists of four fragments of soft butler tissue that are up to 0.7 cm in greatest dimension. Entirely submitted in (D1). TW (under the direct supervision of a pathologist) The Gross Description was prepared using a voice recognition system. The report PATIENT NAME: JOCELINE EMERY PATHOLOGY DATE OF : [birth year] REPORT #: [id number] PHYSICIAN: NIKKO WALTERS PCP: ELIJAH VILLALOBOS REPORT IS CONFIDENTIAL AND NOT TO BE RELEASED WITHOUT AUTHORIZATION [facility] [address] [place], [place] [address] Signed was reviewed for accuracy; however, sound-alike word errors, addition and/or deletions may occur. If there is any question about this report, please contact Client Services. ADDITIONAL NOTES: Immunohistochemical and/or in situ hybridization studies were performed on this case with the appropriate positive controls that react as expected. This test was developed and its performance characteristics determined by [facility]. It has not been cleared or approved by the U.S. Food and Drug Administration. The FDA has determined that such clearance or approval is not necessary. This test is used for clinical purposes. It should not be regarded as investigational or for research. [facility] is certified under the Clinical Laboratory Improvement Amendments of 1988 (CLIA) as qualified to perform high complexity clinical laboratory testing. This assay has not been validated for specimens that have been decalcified. PERFORMING LABORATORY: Technical component was performed by [facility], [address] [place] [address] (CLIA# [id number]). Professional interpretation was performed by [facility] - [facility], [address] [place] [id number] (CLIA#: [id number]). Diagnostician: Christian Cuellar MD Pathologist Electronically Signed 08/09/2023 Copies: ~ PATIENT NAME: JOCELINE EMERY PATHOLOGY DATE OF : [birth year] REPORT #: [id number] PHYSICIAN: [facility] PCP: ELIJAH VILLALOBOS REPORT IS CONFIDENTIAL AND NOT TO BE RELEASED WITHOUT AUTHORIZATION
== END 2023-08-06 13:25 | disposition home or self-care (01) ==
LOC: OPS 10:46 → DS 10:46 → OPS 11:00
PROVIDERS: ATTEND Surgery
PROC: 0DB68ZX Excision of Stomach, Via Natural or Artificial Opening Endoscopic, Diagnostic (ICD-10-PCS; 2023-08-06)
PROC: 0DB38ZX Excision of Lower Esophagus, Via Natural or Artificial Opening Endoscopic, Diagnostic (ICD-10-PCS; 2023-08-06)
PROC: 0DB98ZX Excision of Duodenum, Via Natural or Artificial Opening Endoscopic, Diagnostic (ICD-10-PCS; principal; 2023-08-06 11:30)
DX: K29.50 Unspecified chronic gastritis without bleeding (principal); K21.00 Gastro-esophageal reflux disease with esophagitis, without bleeding; R63.8 Other symptoms and signs concerning food and fluid intake; Z98.84 Bariatric surgery status; Z90.3 Acquired absence of stomach [part of]
CPT/HCPCS: 00731; 93005; 93010; J2001; J2704; J7121

== ENCOUNTER 2023-12-26 05:48 | Day surgery (SDC) | payer OTHER ==
[2023-12-17 09:09] VITALS: BP 120/65
[~2023-12-26] VITALS: Ht 167.6 cm; Wt 59.1 kg
[~2023-12-26 05:48] MED LIST changes: +AMOXICILLIN500 MG PO; +CYCLOBENZAPRINE10 MG PO; +LACTATED RINGER'S 1,000 ML IV SCH
[2023-12-26 06:03] VITALS: BP 109/60
[2023-12-26] MEDS ORDERED: IBLOOD GLUCOSE TEST STRIP 1 EA TEST VI PRN ×2 (07:00→10:00)
[2023-12-26] MEDS ORDERED: HEParin SOD (PORCINE) 5,000 UNIT/0.5 ML SYR SUB-Q SCH (07:00)
[2023-12-26] MEDS ORDERED: LIDOCAINE HCL 1% 5 ML SDV INJ ONE (07:00)
[2023-12-26] MEDS ORDERED: CEFAZOLIN SODIUM 2 GM/20 ML SYR IV SCH (07:00)
--- NOTE | 2023-12-26 07:45 | NUR ---
0720 PT COMFORTABLE, ON PHONE. IV PATENT.
[2023-12-26] MEDS ORDERED: ondansetron HCL 4 MG/2 ML VIAL ONE (07:51)
[2023-12-26] MEDS ORDERED: propofoL 200 MG/20 ML VIAL ONE (07:51)
[2023-12-26] MEDS ORDERED: fentaNYL citrate 100 MCG/2 ML VIAL ONE (07:51)
[2023-12-26] MEDS ORDERED: DEXAMETHASONE SOD PHOS 4 MG/ML VIAL ONE (07:51)
[2023-12-26] MEDS ORDERED: ROCURONIUM BROMIDE 50 MG/5 ML SYR ONE ×2 (07:52→09:57)
[2023-12-26] MEDS ORDERED: LIDOCAINE HCL 2% 5 ML SDV ONE (07:52)
[2023-12-26] MEDS ORDERED: SODIUM CHLORIDE 0.9% 60 ML IV ONE (08:49)
[2023-12-26] MEDS ORDERED: iopamidoL 30 ML VIAL ONE (08:49)
[2023-12-26] MEDS ORDERED: ACETAMINOPHEN 1,000 MG/100 ML VIAL ONE (09:54)
[2023-12-26] MEDS ORDERED: SUGAMMADEX SODIUM 200 MG/2 ML ML ONE (09:58)
[2023-12-26] MEDS ORDERED: KETOROLAC TROMETHAMINE 30 MG/ML VIAL IV PRN (10:00)
[2023-12-26] MEDS ORDERED: NALOXONE HCL 0.4 MG SYR IV PRN ×2 (10:00→10:30)
[2023-12-26] MEDS ORDERED: droPERidol 5 MG/2 ML VIAL IV PRN (10:00)
[2023-12-26] MEDS ORDERED: ondansetron HCL 4 MG/2 ML VIAL IV PRN (10:00)
[2023-12-26] MEDS ORDERED: HYDROmorphone HCL 1 MG/ML SYR IV PRN (10:00)
[2023-12-26] MEDS ORDERED: TYLENOL EXTRA500 MG PO (10:30)
[2023-12-26] MEDS ORDERED: LACTATED RINGER'S 1,000 ML IV SCH (10:30)
[2023-12-26] MEDS ORDERED: PERCOCET 7.5-31 EACH PO (10:30)
[2023-12-26] MEDS ORDERED: IBUPROFEN 600 MG TAB PO PRN (10:30)
[2023-12-26] MEDS ORDERED: ACETAMINOPHEN 500 MG TAB PO PRN (10:30)
[2023-12-26] MEDS ORDERED: OXYCODONE/APAP 7.5/325 TAB PO PRN (10:30)
[2023-12-26] MEDS ORDERED: MOTRIN IB200 MG PO (10:31)
[2023-12-26 11:02] VITALS: BP 91/49
--- NOTE | 2023-12-26 11:07 | NUR ---
NO ONE WAITING. CALL LIGHT GIVEN. DEEP RESPIRATIONS EYES CLOSED. RESPONDS TO VERBAL.
--- NOTE | 2023-12-26 11:17 | NUR ---
12/26/23 1117 Karen Coello 1013- PT PRESENTS TO PACU, SEMI MCCRACKEN POSITION. NON REACTIVE TO STIMULUS, ON ROOM AIR. BREATHING EVEN AND NON LABORED. LR INFUSING TO RW IV. ABD SOFT, NON DISTENDED. 4 LAP SITES WITH STERI STRIPS IN PLACE. ALL MONITORS IN PLACE, WILL CONTINUE TO MONITOR. 1018- PT REACTIVE TO VERBAL STIMULI, C/O 8/10 PAIN. MEDICATED PER HOUSING ASSISTANT PROPERTY MANAGER SALINAS AT BEDSIDE. 1023- PT C/O NAUSEA, PROVIDED WITH ALCOHOL SWAB FOR NON MEDICATION MEASURE WITH EMESIS BAG. HEAD OF BED ELEVATED FURTHER. 2ND PILLOW GIVEN WITH EDUCATION ON SPLINTING ABD. WILL MEDICATE PER ORDERS. PAIN DOWN OT 5/10. 1030- 1ST LITER LR COMPLETE, 2ND LITER STARTED AT THIS TIME. 1035- DR BAILON AT BEDSIDE TO REVIEW PROCEDURE AND FINDINGS. PT WAKES EASILY TO VERBAL STIMULI, CONTINUES TO C/O PAIN NOW INCREASING TO 7/10 WITH CENTER OF ABD TEARING SENSATION. WILL MEDICATE PER ORDERS. 1043- PT NOW RESTING AFTER DILUADID, APPEARS MORE COMFORTABLE. BREATHING EVEN AND NON LABORED. 1052- PT WAKES EASILY TO VERBAL STIMULI, REPORTS PAIN IS IMPROVING AND TOLERABLE AT THIS TIME. PLAN TO TAKE PT BACK TO DAY SURGERY. 1100- PT TAKEN BACK TO DAY SURGERY, DROWSY BUT WAKES TO VERBAL STIMULI AND ANSWERS QUESTIONS APPROPRIATELY. PAIN DOWN TO 5/10 AND TOLERABLE AT THIS TIME. LR HANGING TKO TO RW IV. LAP SITES ASSESSED WITH [place] DOMINIQUE, SMALL AMOUNT OF DRAINAGE FROM UMBILICUS. REPORT AT BEDSIDE TO [place] DOMINIQUE, CARE OF PT TURNED OVER AT THIS TIME.
[2023-12-26 11:48] VITALS: BP 100/54
--- NOTE | 2023-12-26 12:02 | NUR ---
REQUESTS PAIN MED RATES PAIN 4/10.
--- NOTE | 2023-12-26 12:09 | NUR ---
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 ATE CRACKERS AND WATER PRIOR TO PAIN MEDICINE. TAKES PAIN MEDICINE AT HOME. SISTER HERE FOR PT.
--- NOTE | 2023-12-26 15:29 | OR ---
[facility] [address] [place], [place] [address] Signed DATE OF OPERATION: 12/26/2023 SURGEON: Lidia Bailon MD PREOPERATIVE DIAGNOSES: 1. Chronic acalculous cholecystitis. 2. History of substance abuse (methadone treatment now). POSTOPERATIVE DIAGNOSES: 1. Chronic acalculous cholecystitis. 2. History of substance abuse (methadone treatment now). PROCEDURES: 1. Laparoscopic cholecystectomy with intraoperative cholangiogram. 2. Surgeon-directed fluoroscopy. ANESTHESIA: General endotracheal, Rob Oswald, DUNGEON MASTER and local 10 mL of 0.25% Marcaine with epinephrine. INDICATION: This 33-year-old woman is a patient of ZAYDA Mars. She has a history of substance abuse and now is on a methadone maintenance program and doing quite well. Additionally, she has undergone gastric sleeve resection, having lost a considerable amount of weight from that. The patient has also been diagnosed with upper gastrointestinal symptoms and upper endoscopy confirmed findings suggestive of eosinophilic esophagitis. She has been treated and now has no dysphagia but does have postprandial bloating, fullness and symptoms highly suggestive of gallbladder problem. Gallbladder ultrasound was normal. A CCK-HIDA test performed November 11, 2023 showed a normal ejection fraction of 78% with marked reproduction of her symptoms of epigastric and right subcostal pain. She is admitted at this time to undergo cholecystectomy preferred by a laparoscopic approach. The risk of bleeding, infection, bile duct injury, need for open procedure and of course failure to cure her symptoms was all reviewed in detail. She understands and wished to proceed. FINDINGS: The gallbladder was chronically inflamed. There were enlarged pericholecystic lymph nodes as well. Intraoperative cholangiogram was normal. The gallbladder once excised Electronically Signed By: LIDIA BAILON MD 12/26/23 1529 PATIENT NAME: JOCELINE EMERY OPERATIVE REPORT DATE OF : [birth year] REPORT #: [id number] PHYSICIAN: LIDIA BAILON MD PCP: ELIJAH VILLALOBOS REPORT IS CONFIDENTIAL AND NOT TO BE RELEASED WITHOUT AUTHORIZATION [facility] [address] [place], [place] [address] Signed showed chronic inflammatory change of the mucosa but no sign of stone or neoplasm. Her liver was normal. DESCRIPTION OF PROCEDURE: The patient was brought to the operating room, given a general endotracheal anesthetic. Preoperative antibiotic Ancef was given. Sequential compression device stockings used and heparin subcutaneously administered. The abdomen was noted to have numerous stria from significant abdominal distention and subsequent weight loss. The abdomen is prepared with a chlorhexidine solution and draped sterilely. An infraumbilical incision was made and using an open Home cannula technique pneumoperitoneum was achieved to a level of 14 mmHg of carbon dioxide gas. Intra-abdominal inspection showed no sign of ascites or carcinomatosis. The liver appeared normal. The gallbladder was floppy, but chronically inflamed and very elongated. Three additional trocars were placed in usual configuration in the subxiphoid, right midclavicular, and right anterior axillary line. The gallbladder was elevated cephalad and filmy adhesions of the omentum were noted to the undersurface. These were taken down with blunt and electrocautery dissection. Retraction of the gallbladder laterally allowed for dissection of the triangle of Calot which demonstrated enlarged pericholecystic lymph nodes indicative of chronic inflammation of course. Ultimately the cystic duct was well identified and a clip applied across gallbladder cystic duct junction. A transverse choledochotomy was made in the cystic duct and egress of clear bile was noted. Using an Nur type cholangiocatheter, intraoperative cholangiography was undertaken with surgeon directed fluoroscopy. This showed free flow of contrast in the biliary tree with prompt emptying into the duodenum. There was no sign of filling defect or biliary anomaly. Catheter was removed and the cystic duct was triply clipped and divided. The gallbladder was then dissected free in a retrograde fashion using electrocautery. The gallbladder was entered at the apex with a minimal spillage of some bile. On that basis, the gallbladder was placed in an endobag and extracted through the infraumbilical port site without problem. Irrigation was undertaken in subhepatic space showing no sign of bile leak, bleeding or other problems. The trocars were removed under direct visualization showing no sign of bleeding. The infraumbilical fascial incision was closed with interrupted 3-0 Vicryl as was the epigastric incision. 10 mL of 0.25% Marcaine with epinephrine was injected locally. The skin was closed with interrupted 3-0 Vicryl and Steri-Strips were applied. The patient tolerated the procedure well, was ultimately extubated and transferred to the recovery room in good condition having suffered no complication. Sponge, needle, and instrument counts were correct x3. Electronically Signed By: LIDIA BAILON MD 12/26/23 1529 PATIENT NAME: JOCELINE EMERY OPERATIVE REPORT DATE OF : [birth year] REPORT #: [id number] PHYSICIAN: LIDIA BAILON MD PCP: ELIJAH VILLALOBOS REPORT IS CONFIDENTIAL AND NOT TO BE RELEASED WITHOUT AUTHORIZATION [address] [address] Signed MD CLEMENTE Gomez/MODL /[id number] cc: ZAYDA Mars Copies: ~ Electronically Signed By: LIDIA BAILON MD 12/26/23 1529 PATIENT NAME: JOCELINE EMERY OPERATIVE REPORT DATE OF : [birth year] REPORT #: [id number] PHYSICIAN: LIDIA BAILON MD PCP: ELIJAH VILLALOBOS REPORT IS CONFIDENTIAL AND NOT TO BE RELEASED WITHOUT AUTHORIZATION
--- NOTE | 2023-12-31 15:11 | PATH ---
[facility] [address] [place], [place] [address] Signed SPECIMEN(S): A GALLBLADDER SPECIMEN SOURCE: A. GALLBLADDER CLINICAL HISTORY: Chronic cholecystitis FINAL PATHOLOGIC DIAGNOSIS: Gallbladder, cholecystectomy: - Chronic calculous cholecystitis - One reactive lymph node BRP MICROSCOPIC EXAMINATION: Histologic sections of all submitted blocks are examined by light microscopy. These findings, together with the gross examination, support the pathologic diagnosis. GROSS DESCRIPTION: The specimen, labeled and designated "Maday, " and designated on the requisition "gallbladder," is received in formalin and consists of Specimen: Previously opened gallbladder. Dimensions: 9.4 x 4.5 x 0.7 cm. Serosa: Green-butler. Cystic Duct: Unobstructed, margin is inked black and shaved. Calculi: Not gross identified. Mucosa: Brown-butler velvety. Wall thickness: 0.3 cm. Lymph node: One red-brown possible pericystic lymph node (0.8 cm in greatest dimension. Additional: None. Health Safety Instructor sections are submitted in (A1). AC (under the direct supervision of a pathologist) The Gross Description was prepared using a voice recognition system. The report was reviewed for accuracy; however, sound-alike word errors, addition and/or deletions may occur. If there is any question about this report, please contact Client Services. ADDITIONAL NOTES: Immunohistochemical and/or in situ hybridization studies if performed in this PATIENT NAME: JOCELINE EMERY DAVE PATHOLOGY DATE OF : [birth year] REPORT #: [id number] PHYSICIAN: NIKKO WALTERS PCP: ELIJAH VILLALOBOS REPORT IS CONFIDENTIAL AND NOT TO BE RELEASED WITHOUT AUTHORIZATION [facility] [address] [place], [place] [address] Signed case included appropriate positive controls that reacted as expected. This test was developed and its performance characteristics determined by [facility]. It has not been cleared or approved by the U.S. Food and Drug Administration. The FDA has determined that such clearance or approval is not necessary. This test is used for clinical purposes. It should not be regarded as investigational or for research. [facility] is certified under the Clinical Laboratory Improvement Amendments of 1988 (CLIA) as qualified to perform high complexity clinical laboratory testing. PERFORMING LABORATORY: Technical component was performed by [facility], [address] [place] [id number] (CLIA# [id number]). Professional interpretation was performed by [facility] - [address] [id number] Diagnostician: Bebo Lopez MD Pathologist Electronically Signed 12/31/2023 Copies: ~ PATIENT NAME: JOCELINE EMERY PATHOLOGY DATE OF : [birth year] REPORT #: [id number] PHYSICIAN: [facility] PCP: ELIJAH VILLALOBOS REPORT IS CONFIDENTIAL AND NOT TO BE RELEASED WITHOUT AUTHORIZATION
[2024-01-01] MEDS ORDERED: REGLAN10 MG PO (16:54)
== END 2023-12-26 12:05 | disposition home or self-care (01) ==
LOC: DS 05:48
PROVIDERS: ATTEND Surgery
PROC: 0FT44ZZ Resection of Gallbladder, Percutaneous Endoscopic Approach (ICD-10-PCS; principal; 2023-12-26 07:30)
DX: K80.10 Calculus of gallbladder with chronic cholecystitis without obstruction (principal); K21.00 Gastro-esophageal reflux disease with esophagitis, without bleeding; R63.8 Other symptoms and signs concerning food and fluid intake; F11.11 Opioid abuse, in remission; Z79.899 Other long term (current) drug therapy
CPT/HCPCS: 00790; 74300; 88304; J0131; J0690; J1100; J1170; J1644; J1790; J1885; J2001; J2405; J2704; J3010; J3490; J7121; Q9967

== ENCOUNTER 2024-07-19 21:41 | Emergency (ER) | payer OTHER ==
[~2024-07-19] VITALS: Ht 167.6 cm; Wt 59.6 kg
[~2024-07-19 21:41] MED LIST changes: -LACTATED RINGER'S 1,000 ML IV SCH; +MOTRIN IB200 MG PO; +PERCOCET 7.5-31 EACH PO; +REGLAN10 MG PO; +TYLENOL EXTRA500 MG PO
[2024-07-19 22:03] VITALS: BP 138/114
== END 2024-07-19 22:06 | disposition home or self-care (01) ==
LOC: ED 21:41
DX: F15.10 Other stimulant abuse, uncomplicated (principal); F17.200 Nicotine dependence, unspecified, uncomplicated; Z79.899 Other long term (current) drug therapy
CPT/HCPCS: 99283

== ENCOUNTER 2024-08-08 11:57 | Emergency (ER) | payer OTHER ==
[~2024-08-08] VITALS: Ht 167.6 cm; Wt 58.5 kg
--- OUTSIDE RECORDS SUMMARY | 2024-08-08 12:04 | XMS ---
PreManage Notification: RUPERT Security Emergency Department Rn Events No recent Security Events currently on file CRITERIA MET - [facility] - 2 Visits in 30 Days CARE PROVIDERS ESAU MINAYA Nurse Practitioner: 04/11/2020-Current PHONE: [phone] -, [facility] Dentist: General Maintenance Helper [facility] PHONE: [phone] -Rowena- Dentist: General Maintenance Helper [facility] PHONE: [phone] Rogers Ricketts DO [facility] Current PHONE: Unknown Hank has no Care Guidelines for this patient. Maryam VISIT COUNT (12 MO.) 5 ELLIOT Perez TOTAL 5 NOTE: Visits indicate total known visits. ED/UCC VISIT TRACKING (12 MO.) 08/08/2024 11:58 [facility] TYPE: Emergency COMPLAINT: - POSS OVERDOSE 07/19/2024 21:[address] 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 [facility] [place] TYPE: Emergency COMPLAINT: - CHEST PAIN DIAGNOSES: - Nicotine dependence, unspecified, uncomplicated - Other residential (current) drug therapy - Palpitations INPATIENT VISIT TRACKING (12 MO.) No inpatient visits to display in this time frame [email or web address]
[2024-08-08] MEDS ORDERED: ondansetron HCL 4 MG/2 ML VIAL IV ONE (12:15)
[2024-08-08] MEDS ORDERED: ACETAMINOPHEN 500 MG TAB PO ONE (12:30)
[2024-08-08 13:26] VITALS: BP 128/99
== END 2024-08-08 13:20 | disposition left against medical advice (07) ==
LOC: ED 11:57
DX: T40.411A Poisoning by fentanyl or fentanyl analogs, accidental (unintentional), initial encounter (principal); R40.4 Transient alteration of awareness; F17.200 Nicotine dependence, unspecified, uncomplicated; Z53.29 Procedure and treatment not carried out because of patient's decision for other reasons; Z79.899 Other long term (current) drug therapy
CPT/HCPCS: 96374; 99283-25; A9270; J2405

== ENCOUNTER 2025-02-22 22:39 | Emergency (ER) | payer SELFPAY ==
[~2025-02-22] VITALS: Ht 167.6 cm; Wt 60.9 kg
[2025-02-22] MEDS ORDERED: AMPHETAMINE SAL10 MG PO (23:00)
[2025-02-22] MEDS ORDERED: FLUOXETINE HCL10 MG PO (23:01)
[2025-02-22 23:38] VITALS: BP 137/89
== END 2025-02-22 23:39 | disposition home or self-care (01) ==
LOC: ED 22:39
DX: F15.10 Other stimulant abuse, uncomplicated (principal); F17.200 Nicotine dependence, unspecified, uncomplicated
CPT/HCPCS: 99283

== ENCOUNTER 2025-02-26 17:11 | Emergency (ER) | payer SELFPAY ==
[~2025-02-26] VITALS: Ht 167.6 cm; Wt 59.5 kg
[~2025-02-26 17:11] MED LIST changes: +AMPHETAMINE SAL10 MG PO; +FLUOXETINE HCL10 MG PO
--- OUTSIDE RECORDS SUMMARY | 2025-02-26 17:18 | XMS ---
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 PHONE: [phone] -Rowena- Dentist: Shear Helper [facility] PHONE: [phone] Rogers Ricketts DO [facility] Current PHONE: Unknown Lauren Stout Physician Assistant Carin ELIZABETH PHONE: [phone] Hank has no Care Guidelines for this patient. Maryam VISIT COUNT (12 MO.) 4 ELLIOT Perez TOTAL 4 NOTE: Visits indicate total known visits. ED/UCC VISIT TRACKING (12 MO.) 02/26/2025 17:12 [facility] [place] TYPE: Emergency COMPLAINT: - WEAKNESS 02/22/2025 22:39 [facility] [place] TYPE: Emergency COMPLAINT: - NUNBNESS IN ARMS DIAGNOSES: - Anesthesia of skin - Nicotine dependence, unspecified, uncomplicated - Other stimulant abuse, uncomplicated 08/08/2024 11:58 [facility] [place] TYPE: Emergency COMPLAINT: - POSS OVERDOSE DIAGNOSES: - Nicotine dependence, unspecified, uncomplicated - Other group home (current) drug therapy - Poisoning by fentanyl or fentanyl analogs, accidental (unintentional), initial encounter - Procedure and treatment not carried out because of patient's decision for other reasons - Transient alteration of awareness 07/19/2024 21:42 [facility] [place] TYPE: Emergency COMPLAINT: - DRUG USE/BREATHING DIAGNOSES: - Nicotine dependence, unspecified, uncomplicated - 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
[2025-02-26 18:19] LABS: BASOPHILS 0.4 % (0.1-1.2); EOSINOPHILS 1.7 % (0.7-5.8); LYMPHOCYTES 19.2 % (19.3-51.7); MCH 29.7 PG (25.6-32.2); MCHC 34.2 g/dL (32.2-35.5); MCV 86.9 fL (79.4-94.8); MONOCYTES 5.4 % (4.7-12.5); NEUTROPHILS 72.9 % (34.0-71.1); RBC 3.97 M/uL (3.93-5.22)
[2025-02-26 18:36] LABS: ALT (SGPT) 48.0 U/L (14-59); AST (SGOT) 77.0 U/L (15-37); GLOMERULAR FILTRATION RATE,EST 96.0 mL/min (>60); PROTEIN, TOTAL 6.4 g/dL (6.4-8.2); UREA NITROGEN 18.0 mg/dL (7-18)
[2025-02-26] MEDS ORDERED: BACTRIM DS TAB1 EACH PO (19:40)
[2025-02-26 20:15] VITALS: BP 104/60
== END 2025-02-26 20:16 | disposition home or self-care (01) ==
LOC: ED 17:11
PROVIDERS: Emergency Medicine
DX: I80.8 Phlebitis and thrombophlebitis of other sites (principal); F17.200 Nicotine dependence, unspecified, uncomplicated; Z79.899 Other long term (current) drug therapy
CPT/HCPCS: 36415; 80053; 85025